=== PATIENT | female | born 1955 | race Caucasian/White ===

== ENCOUNTER 2021-03-22 13:36 | Emergency (ER) | payer MEDICAID ==
[~2021-03-22] VITALS: Ht 157.5 cm; Wt 29.5 kg
[2021-03-22 13:40] VITALS: BP_SYST 158
--- NOTE | 2021-03-22 13:40 | NUR ---
Placed in room 3 . Placed on traffic monitor specialist, blood pressure machine and pulse oximeter. To gown for exam. Side rails up. Report given to ARIANE HO.
--- NOTE | 2021-03-22 14:02 | NUR ---
66 years old female presents to er c/o right lower quadrant pain for 1 week with nausea.
[2021-03-22] MEDS ORDERED: ONDANSETRON 4 MG ODT TAB PO ONE (14:15)
[2021-03-22 14:29] LABS: CREATININE 0.68 mg/dL (0.55-1.30); POTASSIUM 3.7 mmol/L (3.5-5.1)
[2021-03-22 14:30] LABS: C-REACTIVE PROTEIN QUANT 0.9 mg/dL (0-0.5)
[2021-03-22 14:36] LABS: BASOPHILS % (AUTO) 0.2 % (0.0-2.0); EOSINOPHILS % (AUTO) 0.4 % (0.0-4.0); HEMATOCRIT 37.6 % (36-48); HEMOGLOBIN 12.6 g/dL (12.0-16.0); LYMPHOCYTES # (AUTO) 1.6 K/uL (1.0-5.5); LYMPHOCYTES % (AUTO) 27.7 % (20.5-51.5); MEAN CORPUSCULAR HEMOGLOBIN 29 pg (27-31); MEAN CORPUSCULAR HGB CONC 34 % (32-36); MEAN CORPUSCULAR VOLUME 88 fL (79.0-98.0); MONOCYTES # (AUTO) 0.4 K/uL (0.0-1.0); MONOCYTES % (AUTO) 5.9 % (1.7-9.3); NEUTROPHILS # (AUTO) 3.9 K/uL (1.8-7.7); NEUTROPHILS % (AUTO) 65.8 % (40.0-70.0); PLATELET COUNT (AUTO) 302 K/uL (130-430); RED BLOOD CELL COUNT(AUTO) 4.28 MIL/uL (4.2-6.2); WHITE BLOOD COUNT (AUTO) 5.9 K/uL (4.8-10.8)
[2021-03-22 14:45] LABS: ALBUMIN 3.7 g/dL (3.4-4.8); TOTAL BILIRUBIN 0.1 mg/dL (0.0-1.0)
[2021-03-22 15:41] LABS: BILIRUBIN,URINE NEGATIVE (NEGATIVE); CLARITY/URINE CLEAR (CLEAR); COLOR,URINE YELLOW (YELLOW); GLUCOSE,URINE NEGATIVE (NEGATIVE); KETONES,URINE NEGATIVE (NEGATIVE); LEUKOCYTE ESTERASE ,URINE NEGATIVE (NEGATIVE); NITRITE, URINE NEGATIVE (NEGATIVE); PH,URINE 6.5 (5.0-8.0); PROTEIN URINE NEGATIVE (NEGATIVE); UROBILINOGEN,URINE 0.2 (0.2-1.0)
[2021-03-22 15:54] LABS: BLOOD, URINE TRACE (NEGATIVE)
[2021-03-22 16:01] LABS: BACTERIA,URINE FEW /HPF (None Seen); WBC,URINE 0-3 /HPF (0-3)
[2021-03-22 16:03] LABS: MUCUS,URINE 1+ /LPF (None Seen)
--- NOTE | 2021-03-22 18:34 | NUR ---
Dr Gary at bedside to review lab/us/ct with patient/family.
[2021-03-22] MEDS ORDERED: KETOROLAC TROMETHAMINE 15 MG VIAL IVP ONE (18:45)
[2021-03-22] MEDS ORDERED: KETOROLAC TROMETHAMINE 30 MG VIAL IM ONE (19:00)
[2021-03-22] MEDS ORDERED: NAPR-690 PO (19:01)
[2021-03-22 19:05] VITALS: BP_SYST 118
--- NOTE | 2021-03-22 19:06 | NUR ---
patient condition stable d/c home with instructions after care reviewed understood left er ambulatory with steady gait.
--- NOTE | 2021-03-22 19:07 | NUR ---
Patient given written and verbal discharge instructions and verbalizes understanding. ER MD discussed with patient the results and treatment provided. Patient in stable condition. ID arm band removed. Rx of given. Patient educated on pain management and to follow up with PMD. Pain Scale . Opportunity for questions provided and answered. Medication side effect fact sheet provided.
== END 2021-03-22 19:05 | disposition home or self-care (01) ==
LOC: SED 13:36
DX: R10.31 Right lower quadrant pain (principal); Z79.899 Other long term (current) drug therapy
CPT/HCPCS: 36415; 74176; 76376; 76830; 76857; 80053; 81000; 82150; 83605; 83690; 85025; 86140; 96372; 99284; J1885; Q0162